=== PATIENT | female | born 1965 | race Caucasian/White ===

== ENCOUNTER 2019-07-15 18:02 | Emergency (ER) | payer OTHER ==
[~2019-07-15] VITALS: Ht 172.7 cm; Wt 90.9 kg
--- OUTSIDE RECORDS SUMMARY | 2019-07-15 18:07 | XMS REPORT | Continuity of Care Document ---
Author Organization Unknown Address Unknown Phone Unavailable Allergies Active Description Code Type Severity Reaction Onset Reported/Identified Relationship to Patient Clinical Status Yes PENICILLINS MODERATE MODERATE Yes PENICILLINS MODERATE OTHER Medications There is no data. Problems Date Dx Coded Attending Type Code Diagnosis Diagnosed By 05/02/2018 W 461.9 ACUT E SINUSITIS, UNSPECIFIED 05/02/2018 W 477.8 ATILIO RGIC RHINITIS DUE TO OTHER ALLERGEN 05/02/2018 W J01.90 ACU TE SINUSITIS, UNSPECIFIED 05/02/2018 W J30.2 OTHE R SEASONAL ALLERGIC RHINITIS 08/29/2018 Nataliya Morel W 599.70 HEMATURIA, UNSPECIFIED 08/29/2018 Nataliya Morel W 788.1 DYSURIA 08/29/2018 Nataliya Morel W 791.0 PROTEINURIA 08/29/2018 Nataliya Morel R30.0 DYSURIA 08/29/2018 Nataliya Morel W R31.9 HEMATURIA, UNSPECIFIED 08/29/2018 Nataliya Morel W R80.8 OTHER PROTEINURIA 08/29/2018 W 599.70 HEM ATURIA, UNSPECIFIED 08/29/2018 W 788.1 DYSURIA 08/29/2018 W 791.0 PROT EINURIA 08/29/2018 W R30.0 DYSURIA 08/29/2018 W R31.9 HIPOLITO TURIA, UNSPECIFIED 08/29/2018 W R80.8 OTHE R PROTEINURIA 08/29/2018 Nataliya Morel W 599.70 HEMATURIA, UNSPECIFIED 08/29/2018 Nataliya Morel W 788.1 DYSURIA 08/29/2018 Nataliya Morel 791.0 PROTEINURIA 08/29/2018 Nataliya Morel R30.0 DYSURIA 08/29/2018 Nataliya Morel R31.9 HEMATURIA, UNSPECIFIED 08/29/2018 Nataliya Morel R80.8 OTHER PROTEINURIA 11/10/2018 CAROL ANN GIBSON W V01.84 CONTACT WITH OR EXPOSURE TO COMMUNICABLE DISEASES, MENINGOCOCCUS 11/10/2018 CAROL ANN GIBSON W V01.84 CONTACT WITH OR EXPOSURE TO COMMUNICABLE DISEASES, MENINGOCOCCUS 11/10/2018 MEETA GIBSONHEL W V01.84 CONTACT WITH OR EXPOSURE TO COMMUNICABLE DISEASES, MENINGOCOCCUS 11/10/2018 MEETA GIBSONHEL W V01.84 CONTACT WITH OR EXPOSURE TO COMMUNICABLE DISEASES, MENINGOCOCCUS 11/11/2018 Nataliya Morel W 780.79 OTHER MALAISE AND FATIGUE 11/11/2018 Adriel Nataliya W R53.83 OTHER FATIGUE 11/11/2018 Adriel Nataliya W 780.79 OTHER MALAISE AND FATIGUE 11/11/2018 Adriel Nataliya W 780.8 GENERALIZED HYPERHIDROSIS 11/11/2018 Nataliya Morel W R53.83 OTHER FATIGUE 11/11/2018 Nataliya Morel W R61 GENERALIZED HYPERHIDROSIS 11/11/2018 Nataliya Morel W 780.79 OTHER MALAISE AND FATIGUE 11/11/2018 Nataliya Morel W 780.8 GENERALIZED HYPERHIDROSIS 11/11/2018 Isela Morelela W R53.83 OTHER FATIGUE 11/11/2018 Adriel Nataliya W R61 GENERALIZED HYPERHIDROSIS 11/14/2018 GIBSON, CAROL ANN W 780.79 OTHER MALAISE AND FATIGUE 11/14/2018 GIBSON, CAROL ANN W 780.8 GENERALIZED HYPERHIDROSIS 11/14/2018 GIBSON, CAROL ANN W R53.83 OTHER FATIGUE 11/14/2018 GIBSON, CAROL ANN W R61 GENERALIZED HYPERHIDROSIS 11/14/2018 GIBSON, CAROL ANN W 780.79 OTHER MALAISE AND FATIGUE 11/14/2018 GIBSON, CAROL ANN W 780.8 GENERALIZED HYPERHIDROSIS 11/14/2018 GIBSON, CAROL ANN W R53.83 OTHER FATIGUE 11/14/2018 GIBSON, CAROL ANN W R61 GENERALIZED HYPERHIDROSIS 11/14/2018 GIBSON, CAROL ANN W 780.79 OTHER MALAISE AND FATIGUE 11/14/2018 GIBSON, CAROL ANN W 780.8 GENERALIZED HYPERHIDROSIS 11/14/2018 GIBSON, CAROL ANN W R53.83 OTHER FATIGUE 11/14/2018 GIBSON, CAROL ANN W R61 GENERALIZED HYPERHIDROSIS 11/14/2018 GIBSON, CAROL ANN W 780.79 OTHER MALAISE AND FATIGUE 11/14/2018 CAROL ANN GIBSON 780.8 GENERALIZED HYPERHIDROSIS 11/14/2018 CAROL ANN GIBSON R53.83 OTHER FATIGUE 11/14/2018 CAROL ANN GIBSON R61 GENERALIZED HYPERHIDROSIS Procedures There is no data. Results Test Result Range Comprehensive Metabolic Panel - 04/04/18 10:30 Albumin 4.0 g/dL 3.6-5.1 ALP 128 U/L 35-130 ALT 22 U/L 6-45 Anion Gap 12 6-14 AST 27 U/L 2-40 BUN 15 mg/dL 5-25 Calcium 9.1 mg/dL 8.3-10.4 Chloride 104 mmol/L 95-114 CO2 25 mEq/L 22-33 Creat 0.82 mg/dL 0.50-1.50 eGFR 73 mL/min/1.73m2 >59 Globulin 2.6 g/dL 2.3-3.5 Glucose 88 mg/dL 70-110 Osmo 283 280-295 Potassium 4.2 mmol/L 3.5-5.3 Sodium 137 mmol/L 134-148 TBil 0.3 mg/dL 0.2-1.2 TP 6.6 g/dL 6.0-8.3 Urine Culture - 08/29/18 10:38 PRELIM CULTURE RESULTS 50,000-100,000 Gram N egative Lactose Youth Support Worker KATELYN / ID to Follow MEDIA PLATED Setup at 14:43 on 08/29/2018 CULTURE SOURCE urine Sensi - 08/29/18 10:38 FINAL CULTURE RESULTS Escherichia coli (Isolate 1) Ampicillin/Sulbactam 16/8 Ampicillin >16 Amoxicillin/K Clavulanate <=8/4 Ceftriaxone <=8 Ciprofloxacin <=1 Nitrofurantoin <=32 Gentamicin <=4 Levofloxacin <=2 Trimethoprim/ Sulfamethoxazole <=2/38 Tetracycline <=4 Amikacin <=16 Aztreonam <=8 Ceftazidime <=1 Ceftazidime/K Clavulanate <=0.25 Cephalothin <=8 Cefotaxime <=2 Cefotaxime/K Clavulanate <=0.5 Cefoxitin <=8 Cefazolin <=8 Cefepime <=8 Cefuroxime <=4 Ertapenem <=1 Imipenem <=4 Meropenem <=4 Piperacillin/Tazobactam <=16 Piperacillin >64 Tigecycline <=2 Tobramycin <=4 Thyroid Stimulating Hormone - 11/14/18 0 8:10 TSH 1.22 mIU/mL 0.32-5.00 CBC with Auto Diff - 01/05/19 09:05 Baso% 0.70 % 0.00-2.50 Eos 0.2 K/uL 0.0-0.7 Eos% 2.0 % 0.0-7.0 Hct 39.6 % 36.0-46.0 Hgb 12.9 g/dL 13.0-15.0 Lym 3.34 K/uL 0.60-3.40 Lym% 39.0 % 10.0-50.0 MCH 30.8 pg 27.0-31.0 MCHC 32.6 g/dL 32.0-36.0 MCV 94.5 fL 80.0-97.0 Stewart% 9.1 % 0.0-12.0 MPV 10.2 fL 7.4-10.0 [place]% 49.2 % 37.0-80.0 Plt 455 K/uL 150-400 RBC 4.19 M/uL 3.60-5.00 RDW 13.3 % 11.6-14.8 WBC 8.56 K/uL 5.00-10.00 [place] 4.21 K/uL 2.00-6.90 Stewart 0.8 K/uL 0.0-0.9 Baso 0.1 K/uL 0.0-0.2 Encounters ACCT No. Visit Date/Time Discharge Status Pt. Type Provider Facility Loc./Unit Complaint [id number] 05/10/2019 00:00:00 05/10/2019 23:59 :00 DIS Outpatient CAROL ANN GIBSON [id number] 01/05/2019 09:19:00 01/05/2019 23:59: 00 DIS Outpatient CAROL ANN GIBSON [id number] 11/14/2018 09:25:00 11/14/2018 23:59: 00 DIS Outpatient CAROL ANN GIBSON [id number] 11/14/2018 08:03:00 11/14/2018 23:59: 00 DIS Outpatient CAROL ANN GIBSON [id number] 11/11/2018 14:30:00 11/11/2018 23:59: 00 DIS Outpatient Nataliya Morel [id number] 11/10/2018 15:30:00 11/10/2018 23:59: 00 DIS Outpatient GIBSONCAROL ANN [id number] 08/29/2018 11:13:00 08/29/2018 23:59: 00 DIS Outpatient Nataliya Morel [id number] 04/04/2018 14:32:00 04/04/2018 23:59: 00 DIS Outpatient Nataliya Morel [id number] 01/05/2019 09:57:43 Document Registration [id number] 08/29/2018 10:30:00 Document Registration [id number] 05/02/2018 08:01:00 Document Registration
[2019-07-15] MEDS ORDERED: IBUPROFEN 800 MG (MOTRIN) TAB PO ONE (18:15)
[2019-07-15] MEDS ORDERED: HYDROcodone/APAP 5 MG/325 MG (LORTAB) TAB PO ONE (18:15)
--- NOTE | 2019-07-15 18:16 | ED Upper Extremity ---
General Chief Complaint: Trauma-Non Activation Stated Complaint: FALL - L ARM PAIN Source: patient Exam Limitations: no limitations History of Present Illness Date Seen by Provider: July 15, 2019 Time Seen by Provider: 18:14 Initial Comments Was cooking chicken, slipped in oil, landed on left elbow. No other injury. Onset: just prior to arrival Severity: moderate Pain/Injury Location: left shoulder, left elbow Method of Injury: fell Modifying Factors: Worse With Movement Allergies and Home Medications Allergies Coded Allergies: Penicillins (Verified Allergy, Unknown, 07/15/19) Home Medications Hydrocodone/Acetaminophen 1 Each Tablet, 1 EACH PO Q4-6HR PRN for PAIN-MODERATE Prescribed by: TRAM LAUGHLIN on 07/15/19 [id number] Patient Home Medication List Home Medication List Reviewed: Yes Review of Systems Constitutional: see HPI EENTM: see HPI Respiratory: no symptoms reported Cardiovascular: no symptoms reported Genitourinary: no symptoms reported Musculoskeletal: see HPI Skin: no symptoms reported Psychiatric/Neurological: No Symptoms Reported Past Neddsjs-Ehxtua-Jjlomh Hx Patient Social History Recent Foreign Travel: No Contact w/Someone Who Travel: No Physical Exam Vital Signs Vital Signs - First Documented 07/15/19 18:06 Temp 37.0 Pulse 102 Resp 18 B/P (MAP) 144/108 (120) Pulse Ox 99 Capillary Refill : Height, Weight, BMI Height: '" Weight: lbs. oz. kg; BMI Method: General Appearance: WD/WN, no apparent distress HEENT: PERRL/EOMI, normal ENT inspection Respiratory: no respiratory distress, no accessory muscle use Shoulder: normal inspection, non-tender Elbow/Forearm: Left, ecchymosis, limited ROM, pain, soft tissue tenderness (also reports some numbness to all of her fingertips except pointer finger), swelling Wrist: Yes normal inspection, Yes non-tender Hand: normal inspection, no evidence of injury, Left Neurologic/Tendon: normal motor functions, normal tendon functions Neurologic/Psychiatric: alert, normal mood/affect, oriented x 3 Skin: normal color, warm/dry Progress/Results/Core Measures Results/Orders My Orders Orders - TRAM LAUGHLIN APRN Hydrocodone/Apap 5/325 Tablet (Lortab 5 (07/15/19 18:15) Ibuprofen Tablet (Motrin Tablet) (07/15/19 18:15) Elbow, Left, 3 Views (07/15/19 18:13) Shoulder, Left, 3 Views (07/15/19 18:13) Medications Given in ED Current Medications Medications Dose Ordered Sig/Aggie Route Start Time Stop Time Status Last Admin Dose Admin Acetaminophen/ Hydrocodone Bitart 1 tab ONCE ONCE PO 07/15/19 18:15 07/15/19 18:16 DC 07/15/19 18:17 1 TAB Ibuprofen 800 mg ONCE ONCE PO 07/15/19 18:15 07/15/19 18:16 DC 07/15/19 18:17 800 MG Vital Signs/I&O 07/15/19 18:06 Temp 37.0 Pulse 102 Resp 18 B/P (MAP) 144/108 (120) Pulse Ox 99 Departure Communication (Admissions) placed in posterior long arm splint and sling. Impression Primary Impression: Left radial head fracture Qualified Codes: S52.125A - Nondisplaced fracture of head of left radius, initial encounter for closed fracture Disposition: HOME, SELF-CARE Condition: Stable Departure-Patient Inst. Decision time for Depature: 18:35 Referrals: PRECIOUS VILLAGOMEZ MD, RACHEL L MD (PCP/Family) Primary Care Physician CARMELITA AWAN MICHAEL P MD Add. Discharge Instructions: 1. Pain medication as directed 2. Follow up with one of the orthopedists next week 3. Keep splint and sling on until otherwise directed. All discharge instructions reviewed with patient and/or family. Voiced understanding. Scripts Hydrocodone/Acetaminophen (Lorcet 5-325 mg Tablet) 1 Each Tablet 1 EACH PO Q4-6HR PRN for PAIN-MODERATE MDD 10 for 7 Days, #14 TAB Prov: TRAM LAUGHLIN COMPUTER SERVICE TECHNICIAN 07/15/19 TRAM LAUGHLIN COMPUTER SERVICE TECHNICIAN July 15, 2019 18:16
[2019-07-15] MEDS ORDERED: HYDR-3870 PO ×2 (18:38→19:03)
--- NOTE | 2019-07-15 18:39 | Diagnostic Imaging Report ---
INDICATION: Fall, pain. EXAMINATION: Three views of the left elbow. FINDINGS: No pathologically displaced fat pad. No fracture or dislocation. The articular surfaces are smooth. The alignment is normal. IMPRESSION: Negative. Dictated by: Dictated on workstation # [id number]
--- NOTE | 2019-07-15 18:40 | Diagnostic Imaging Report ---
INDICATION: Slipped and fell with pain. EXAMINATION: Three views of the left shoulder. FINDINGS: The clavicle appears intact. The AC joint is unremarkable. No fracture could be identified. The glenohumeral joint is unremarkable. The visualized adjacent ribs and pleura are intact. IMPRESSION: No acute appearing abnormality. Dictated by: Dictated on workstation # [id number]
[2019-07-15 19:12] VITALS: BP 152/108
[2019-07-15] MEDS ORDERED: RX-HYDROCODONE/APAP 5/325 MG #4 TAB PK PO PRN (19:15)
== END 2019-07-15 19:11 | disposition home or self-care (01) ==
LOC: ER 18:04
DX: S52.125A Nondisplaced fracture of head of left radius, initial encounter for closed fracture (principal); Z88.0 Allergy status to penicillin; W01.0XXA Fall on same level from slipping, tripping and stumbling without subsequent striking against object, initial encounter
CPT/HCPCS: 29105; 73030; 73080

== ENCOUNTER 2019-12-26 13:02 | Observation (INO) | payer OTHER ==
[2019-12-26] VITALS (8 sets, daily range): BP systolic 103–133; BP diastolic 63–87
[~2019-12-26] VITALS: Ht 172.7 cm; Wt 93.3 kg
[~2019-12-26 13:02] MED LIST: HYDR-3870 PO
[2019-12-26] MEDS ORDERED: ASPIRIN 81 MG CHEW (CHILDREN'S ASA) PO ONE (13:30)
[2019-12-26] MEDS ORDERED: NITROGLYCERIN 0.4 MG SL TABS BTL 25'S SL PRN ×2 (13:30→17:15)
[2019-12-26 13:33] LABS: BASOPHILS % (AUTO) 0 % (0-10); EOSINOPHILS # (AUTO) 0.2 10^3/uL (0.0-0.3); EOSINOPHILS % (AUTO) 2 % (0-10); HEMATOCRIT 40 % (35-52); HEMOGLOBIN 13.1 g/dL (11.5-16.0); LYMPHOCYTES # (AUTO) 3.8 10^3/uL (1.0-4.0); LYMPHOCYTES % (AUTO) 38 % (12-44); MEAN CORPUSCULAR HEMOGLOBIN 30 pg (25-34); MEAN CORPUSCULAR HGB CONC 33 g/dL (32-36); MEAN CORPUSCULAR VOLUME 92 fL (80-99); MEAN PLATELET VOLUME 9.8 fL (9.0-12.2); MONOCYTES # (AUTO) 0.8 10^3/uL (0.0-1.0); MONOCYTES % (AUTO) 8 % (0-12); NEUTROPHILS # (AUTO) 5.1 10^3/uL (1.8-7.8); NEUTROPHILS % (AUTO) 51 % (42-75); PLATELET COUNT 407 10^3/uL (130-400)
--- NOTE | 2019-12-26 13:40 | Diagnostic Imaging Report ---
INDICATION: Chest pain. Time of exam 1:35 p.m. No prior studies are available for comparison. FINDINGS: The heart size is normal. The pulmonary vascularity is unremarkable. The lungs are clear. No infiltrate, effusion or pneumothorax is detected. IMPRESSION: No acute cardiopulmonary process is detected. Dictated by: Dictated on workstation # [id number]
[2019-12-26 13:47] LABS: ALBUMIN 4.2 GM/DL (3.2-4.5); CHLORIDE 104 MMOL/L (98-107); POTASSIUM 4.5 MMOL/L (3.6-5.0); PROTHROMBIN TIME PATIENT 13.1 SEC (12.2-14.7); SODIUM 140 MMOL/L (135-145)
[2019-12-26 13:48] LABS: CALCIUM 9.2 MG/DL (8.5-10.1)
[2019-12-26 13:49] LABS: GLUCOSE 100 MG/DL (70-105)
[2019-12-26 13:50] LABS: TOTAL PROTEIN 7.4 GM/DL (6.4-8.2)
[2019-12-26 13:51] LABS: BILIRUBIN,TOTAL 0.3 MG/DL (0.1-1.0); CARBON DIOXIDE 24 MMOL/L (21-32)
[2019-12-26 13:53] LABS: ALKALINE PHOSPHATASE 117 U/L (40-136); CREATININE SERUM 0.95 MG/DL (0.60-1.30); GFR ESTIMATED > 60
[2019-12-26 13:54] LABS: BUN/CREATININE RATIO 23
[2019-12-26 13:56] LABS: ALANINE AMINOTRANSFERASE 36 U/L (0-55)
--- NOTE | 2019-12-26 15:36 | ED Chest Pain ---
General Chief Complaint: Chest Pain Stated Complaint: CP,SOB Nursing Triage Note: PT STATES CHEST PAIN IN THE UPPER CHEST THAT STARTED WHILE AT WORK, SITTING AT A DESK, LIGHTHEADED AND HOT FLASHES. Nursing Sepsis Screen: No Definite Risk Source: patient Exam Limitations: no limitations History of Present Illness Date Seen by Provider: Dec 26, 2019 Time Seen by Provider: 13:10 Initial Comments This 54-year-old woman presents to the emergency room with lower chest mathis that wraps around the lateral edges. Pain started abruptly at work at 12:21 and was characterized as sharp. She rated the pain as 10 out of 10. Pain is now 6/10. She felt very hot and lightheaded at the time. She reports taking deep breaths and resting improved the pain. She denies any personal history of cardiopulmonary problems. She has never been a smoker. Her family history includes bicuspid valve, hypertension, hyperlipidemia, and colon cancer in her father. Her personal history includes breast cancer treated with lumpectomy. She denies any cough, shortness of breath, fever, or COVID-19 exposures. Allergies and Home Medications Allergies Coded Allergies: hydrocodone (Verified Allergy, Mild, Nausea, 12/26/19) Penicillins (Verified Allergy, Unknown, 07/15/19) Home Medications Hydrocodone/Acetaminophen 1 Each Tablet, 1 EACH PO Q4-6HR PRN for PAIN-MODERATE Prescribed by: TRAM LAUGHLIN on 07/15/19 1838 Hydrocodone/Acetaminophen 1 Each Tablet, 1 EACH PO Q4-6HR PRN for PAIN-MODERATE Prescribed by: TRAM LAUGHLIN on 07/15/19 1903 Patient Home Medication List Home Medication List Reviewed: Yes Review of Systems Review of Systems Constitutional: see HPI EENTM: No Symptoms Reported Respiratory: No Symptoms Reported Cardiovascular: See HPI Gastrointestinal: No Symptoms Reported Genitourinary: No Symptoms Reported Musculoskeletal: no symptoms reported Skin: no symptoms reported Psychiatric/Neurological: No Symptoms Reported Endocrine: No Symptoms Reported Hematologic/Lymphatic: No Symptoms Reported Past Ypngvze-Xxpgxc-Vvriid Hx Past Med/Social Hx: Reviewed Nursing Past Med/Soc Hx Patient Social History Alcohol Use: Occasionally Uses Number of Drinks Today: GG Alcohol Beverage of Choice: Beer, Whiskey Recreational Drug Use: No Smoking Status: Never a Smoker Recent Foreign Travel: No Contact w/Someone Who Travel: No Recent Infectious Disease Expo: No Recent Hopitalizations: No Physical Abuse: No Sexual Abuse: No Mistreated: No Fear: No Seasonal Allergies Seasonal Allergies: Yes Past Medical History Surgeries: Yes (BI LAT KNEES, skin cancer excision) Lumpectomy, Orthopedic Respiratory: No Cardiac: No Neurological: No : No Genitourinary: No Gastrointestinal: No Musculoskeletal: No Endocrine: No HEENT: No Cancer: Yes Skin, Breast Did You Recieve Any Treatments: Yes What Type of Treatment Did You: Surgical Intervention Psychosocial: No Integumentary: No Physical Exam Vital Signs Vital Signs - First Documented Capillary Refill : Less Than 3 Seconds Height, Weight, BMI Height: '" Weight: lbs. oz. kg; 30.00 BMI Method: General Appearance: No Apparent Distress, WD/WN HEENT: PERRL/EOMI, Normal ENT Inspection Neck: Normal Inspection; No JVD Respiratory: Chest Non Tender, Lungs Clear, Normal Breath Sounds, No Accessory Muscle Use, No Respiratory Distress Cardiovascular: Regular Rate, Rhythm, No Edema, No Murmur Gastrointestinal: Normal Bowel Sounds, Non Tender, Soft Extremity: Normal Inspection, No Pedal Edema Neurologic/Psychiatric: Alert, Oriented x3, No Motor/Sensory Deficits, Normal Mood/Affect, medical staff coordinator II-XII Norm as Tested Skin: Normal Color, Warm/Dry Progress/Results/Core Measures Results/Orders Lab Results Laboratory Tests Test 12/26/19 13:25 12/26/19 15:28 Range/Units White Blood Count 10.0 4.3-11.0 10^3/uL Red Blood Count 4.31 3.80-5.11 10^6/uL Hemoglobin 13.1 11.5-16.0 g/dL Hematocrit 40 35-52 % Mean Corpuscular Volume 92 80-99 fL Mean Corpuscular Hemoglobin 30 25-34 pg Mean Corpuscular Hemoglobin Concent 33 32-36 g/dL Red Cell Distribution Width 12.8 10.0-14.5 % Platelet Count 407 H 130-400 10^3/uL Mean Platelet Volume 9.8 9.0-12.2 fL Immature Granulocyte % (Auto) 0 % Neutrophils (%) (Auto) 51 42-75 % Lymphocytes (%) (Auto) 38 12-44 % Monocytes (%) (Auto) 8 0-12 % Eosinophils (%) (Auto) 2 0-10 % Basophils (%) (Auto) 0 0-10 % Neutrophils # (Auto) 5.1 1.8-7.8 10^3/uL Lymphocytes # (Auto) 3.8 1.0-4.0 10^3/uL Monocytes # (Auto) 0.8 0.0-1.0 10^3/uL Eosinophils # (Auto) 0.2 0.0-0.3 10^3/uL Basophils # (Auto) 0.0 0.0-0.1 10^3/uL Immature Granulocyte # (Auto) 0.0 0.0-0.1 10^3/uL Prothrombin Time 13.1 12.2-14.7 SEC INR Comment 1.0 0.8-1.4 Activated Partial Thromboplast Time 27 24-35 SEC Sodium Level 140 135-145 MMOL/L Potassium Level 4.5 3.6-5.0 MMOL/L Chloride Level 104 98-107 MMOL/L Carbon Dioxide Level 24 21-32 MMOL/L Anion Gap 12 5-14 MMOL/L Blood Urea Nitrogen 22 H 7-18 MG/DL Creatinine 0.95 0.60-1.30 MG/DL Estimat Glomerular Filtration Rate > 60 BUN/Creatinine Ratio 23 Glucose Level 100 70-105 MG/DL Calcium Level 9.2 8.5-10.1 MG/DL Corrected Calcium 9.0 8.5-10.1 MG/DL Magnesium Level 2.0 1.6-2.4 MG/DL Total Bilirubin 0.3 0.1-1.0 MG/DL Aspartate Amino Transf (AST/SGOT) 30 5-34 U/L Alanine Aminotransferase (ALT/SGPT) 36 0-55 U/L Alkaline Phosphatase 117 40-136 U/L Myoglobin 24.1 10.0-92.0 NG/ML Troponin I < 0.028 <0.028 NG/ML Total Protein 7.4 6.4-8.2 GM/DL Albumin 4.2 3.2-4.5 GM/DL D-Dimer <= 0.27 0.00-0.49 UG/ML My Orders Orders - SETH BAJWA MD Cbc With Automated Diff (12/26/19 13:14) Magnesium (12/26/19 13:14) Chest 1 View, Ap/Pa Only (12/26/19 13:14) Ekg Tracing (12/26/19 13:14) Comprehensive Metabolic Panel (12/26/19 13:14) Myoglobin Serum (12/26/19 13:14) Protime With Inr (12/26/19 13:14) Partial Thromboplastin Time (12/26/19 13:14) O2 (12/26/19 13:14) Monitor-Rhythm Ecg Trace Only (12/26/19 13:14) Lipid Panel (12/27/19 06:00) Ed Iv/Invasive Line Start (12/26/19 13:14) Troponin I (12/26/19 13:14) Nitroglycerin 0.4 Mg Btl 25's (Nitrostat (12/26/19 13:30) Aspirin Chewable Tablet (Baby Aspirin Ch (12/26/19 13:30) Fibrin Degradation Products (12/26/19 15:28) Medications Given in ED Current Medications Medications Dose Ordered Sig/Aggie Route Start Time Stop Time Status Last Admin Dose Admin Aspirin 324 mg ONCE ONCE PO 12/26/19 13:30 12/26/19 13:31 DC 12/26/19 13:29 324 MG Nitroglycerin 0.4 mg UD PRN SL 12/26/19 13:30 12/26/19 17:13 DC 12/26/19 13:29 0.4 MG Vital Signs/I&O 12/26/19 12/26/19 13:20 13:20 Temp 36.6 Pulse 87 Resp 20 B/P (MAP) 129/86 (100) Pulse Ox 99 O2 Delivery Room Air Room Air Blood Pressure Mean: 100 Progress Progress Note #1: Time: 15:29 Progress Note Initial cardiopulmonary work-up was unremarkable. Patient had reduction in pain from 6/10 down to 4/10 after administration of 2 nitroglycerin. Aspirin was also given. PERC criteria did not exclude her from evaluation for pulmonary embolism due to her age. Therefore a D-dimer has been added. Case was discussed with Dr. Taylor who is agreeable to admission for her persistent chest pain. Progress Note #2: Progress Note D-dimer was negative. Patient still had some residual chest discomfort. She was ultimately admitted for further monitoring and cardiac consultation Initial ECG Impression Date: Dec 26, 2019 Initial ECG Impression Time: 13:06 Initial ECG Rate: 82 Initial ECG Rhythm: Normal Sinus Comment Sinus rhythm with no ST elevation or depression. Inverted T waves noted. No abnormal intervals or axis deviation. Diagnostic Imaging Diagonstic Imaging: Xray Plain Films/CT/US/NM/MRI: chest Comments NAME: AAKASH SANDOVAL [facility] REC#: [id number] PT STATUS: REG ER : 1965 PHYSICIAN: SETH BAJWA MD ADMIT DATE: 12/26/19/ER Draft Date of Exam:12/26/19 CHEST 1 VIEW, AP/PA ONLY INDICATION: Chest pain. Time of exam 1:35 p.m. No prior studies are available for comparison. FINDINGS: The heart size is normal. The pulmonary vascularity is unremarkable. The lungs are clear. No infiltrate, effusion or pneumothorax is detected. IMPRESSION: No acute cardiopulmonary process is detected. Dictated on workstation # [id number] Dict: 12/26/19 1335 Trans: 12/26/19 1340 [facility] [id number] Interpreted by: ANNALISA SKY MD Reviewed: Reviewed by Me Departure Communication (Admissions) Time/Spoke to Admitting Phy: 15:55 Dr. Pruett Time/Spoke to Consulting Phy: 15:07 Dr. Taylor Impression Primary Impression: Chest pain Qualified Codes: R07.9 - Chest pain, unspecified Disposition: ADMITTED INPATIENT Condition: Improved Admissions Decision to Admit Reason: Admit from ER (General) Decision to Admit/Date: Dec 26, 2019 Time/Decision to Admit Time: 15:07 Departure-Patient Inst. Referrals: CAROL ANN GIBSON MD (PCP/Family) Primary Care Physician SETH BAJWA MD Dec 26, 2019 15:36
--- NOTE | 2019-12-26 16:50 | NUR ---
REPORT TAKEN FROM CLARISSA MARTE IN ED AT THIS TIME.
--- NOTE | 2019-12-26 17:08 | NUR ---
PATIENT TO FLOOR AT THIS TIME VIA W/C.
[2019-12-26] MEDS ORDERED: CATHETER FLUSH 10 ML SYR IV PRN (17:15)
[2019-12-26] MEDS ORDERED: morphine INJ 4 MG/ML 1 ML (VIAL/SYRINGE) IV PRN (17:15)
[2019-12-26] MEDS ORDERED: ONDANSETRON 4 MG/2 ML (SDV) Z0FRAN IV PRN (17:15)
[2019-12-26] MEDS ORDERED: ONDANSETRON 4 MG/2 ML (SDV) Z0FRAN IVP PRN (17:15)
[2019-12-26] MEDS ORDERED: FLU QUADRIvalent (3YOA+) 60 mcg/0.5 ml 2020-21 (AFLURIA) IM ONE (17:45)
[2019-12-26] MEDS: CATHETER FLUSH 10 ML SYR IV SCH (22:48)
[2019-12-27] VITALS (7 sets, daily range): BP systolic 110–130; BP diastolic 62–86
[2019-12-27] MEDS: CATHETER FLUSH 10 ML SYR IV SCH ×3 (05:07→22:00)
[2019-12-27 06:08] LABS: TRIGLYCERIDES 106 MG/DL (<150); VLDL CHOLESTEROL 21 MG/DL (5-40)
[2019-12-27 06:13] LABS: CHOLESTEROL 209 MG/DL (< 200)
[2019-12-27 06:14] LABS: HDL CHOLESTEROL 100 MG/DL (40-60)
[2019-12-27] MEDS: ASPIRIN E.C. 81 MG (ECOTRIN) TAB PO SCH (08:34)
[2019-12-27] MEDS ORDERED: IBUP200C11 PO (10:40)
[2019-12-27] MEDS ORDERED: FEXO180T84 PO (10:40)
[2019-12-27] MEDS ORDERED: ST.300TA3 PO (10:40)
[2019-12-27] MEDS ORDERED: ACET-2267 PO (10:40)
[2019-12-27] MEDS ORDERED: CALC500T7 PO (10:40)
--- NOTE | 2019-12-27 10:49 | NUR ---
I SPOKE WITH THE PATIENT AND WENT THROUGH THE EXTERNAL MED HISTORY TO COMPLETE THIS MED REC. PATIENT STATES THAT SHE'S ONLY TAKING OTC MEDS AT THIS TIME. OTC: [facility] EDIE JUAREZ TYLENOL ADVIL
--- NOTE | 2019-12-27 11:43 | History & Physical-Hospitalist ---
History of Present Illness HPI/Chief Complaint Pt is a 54yoCF who presented to the ER due to chest pain. she states she was sitting at her desk at work and developed 10 on 10 chest pain across her chest. She describes it as tight. She was short of breath, lightheaded, diaphoretic with this. She denies nausea or vomiting. She developed tingling down her left hand with this. this started abruptly at 1221 yesterday. She attempted to get up and walk around but was too dyspneic for this. It improved at 1250. She decided to seek evaluation in the emergency room. She was given nitroglycerin which improved her pain. She is now chest pain free but she does have some left calf soreness Source: patient Date Seen 12/27/19 Time Seen by a Provider: 11:33 Attending Physician Jo Pruett MD PCP Sandrita Cantu MD Referring Physician Date of Admission Dec 26, 2019 at 16:39 Home Medications & Allergies Home Medications Reviewed patient Home Medication Reconciliation performed by pharmacy medication reconciliations wheel alignment technician and/or nursing. Patients Allergies have been reviewed. Allergies Allergies Coded Allergies hydrocodone (Verified Allergy, Mild, Nausea, 12/26/19) Penicillins (Verified Allergy, Unknown, 07/15/19) Past Wzbpwei-Wmzxsu-Qrtsns Hx Past Med/Social Hx: Reviewed Nursing Past Med/Soc Hx Patient Social History Alcohol Use: Occasionally Uses Alcohol Beverage of Choice: Beer, Whiskey Recreational Drug Use: No Smoking Status: Never a Smoker Recent Foreign Travel: No Contact w/other who traveled: No Recent Hopitalizations: No Recent Infectious Disease Expo: No Seasonal Allergies Seasonal Allergies: Yes Past Medical History Surgeries: Lumpectomy, Orthopedic : No Cancer: Skin, Breast Did You Recieve Any Treatments: Yes What Type of Treatment Did You: Surgical Intervention Family History Alzheimer's disease 19 MOTHER Bicuspid heart valve 19 FATHER Colon cancer 19 FATHER Dementia 19 MOTHER Diabetes mellitus 19 FATHER Hypercholesterolemia 19 FATHER 19 MOTHER Hypertension 19 FATHER 19 MOTHER Review of Systems Constitutional: No chills, No fever EENTM: no symptoms reported Respiratory: see HPI Cardiovascular: see HPI, chest pain Gastrointestinal: no symptoms reported Genitourinary: no symptoms reported Musculoskeletal: muscle cramps Skin: no symptoms reported Psychiatric/Neurological: Tingling (in hand) Physical Exam Physical Exam Vital Signs Vital Signs - First Documented Capillary Refill : Less Than 3 Seconds Height, Weight, BMI Height: '" Weight: lbs. oz. kg; 31.28 BMI Method: General Appearance: No Apparent Distress, WD/WN HEENT: PERRL/EOMI, Moist Mucous Membranes Neck: Normal Inspection, Supple; No Thyromegaly Respiratory: Lungs Clear, No Accessory Muscle Use, No Respiratory Distress Cardiovascular: Regular Rate, Rhythm, No Murmur Gastrointestinal: Normal Bowel Sounds, Non Tender, Soft Extremity: Normal Capillary Refill, No Calf Tenderness, No Pedal Edema Neurologic/Psychiatric: Alert, Oriented x3 Skin: Normal Color, Warm/Dry Results Results/Procedures Labs Patient resulted labs reviewed. Imaging: Reviewed Imaging Report Imaging [facility], [place] NAME: AAKASH SANDOVAL [facility] REC#: [id number] PT STATUS: ADM Shira : 1965 PHYSICIAN: SETH BAJWA MD ADMIT DATE: 12/26/19 Signed Date of Exam:12/26/19 CHEST 1 VIEW, AP/PA ONLY INDICATION: Chest pain. Time of exam 1:35 p.m. No prior studies are available for comparison. FINDINGS: The heart size is normal. The pulmonary vascularity is unremarkable. The lungs are clear. No infiltrate, effusion or pneumothorax is detected. IMPRESSION: No acute cardiopulmonary process is detected. Dictated by: Dictated on workstation # [id number] Dict: 12/26/19 1335 Trans: 12/26/19 1659 [facility] [id number] Interpreted by: ANNALISA SKY MD Electronically signed by: ANNALISA SKY MD 12/26/19 1659 Assessment/Plan Admission Diagnosis Chest Pain Admission Status: Observation Assessment and Plan Chest Pain troponin negative x2 d-dimer negative EKG shows NSR with inverted T waves Cardiology consulted, appreciate recs ASA Nitro prn Hypercholesterolemia Total choleterol 209 LDL 90, HDL 100 Consider statin Dvt ppx: Lovenox Diagnosis/Problems Diagnosis/Problems (1) Chest pain Status: Acute Qualifiers: Chest pain type: unspecified Qualified Codes: R07.9 - Chest pain, unspecified Clinical Quality Measures AMI/AHF: ASA po Prior to arrival: No DVT/VTE Risk/Contraindication: Risk Factor Score Per Nursin RFS Level Per Nursing on Admit: 4+=Very High JO PRUETT MD Dec 27, 2019 11:43
[2019-12-27] MEDS: ENOXAPARIN 40 MG/0.4 ML (LOVENOX) SYR SQ SCH (12:46)
--- NOTE | 2019-12-27 16:31 | Consultation-Cardiology ---
HPI-Cardiology Cardiology Consultation: Date of Consultation 12/27/19 Date of Admission Attending Physician Justina Pruett MD Admitting Physician Sandrita Cantu MD Consulting Physician Keysha ROBERTO MD HPI: Time Seen by a Provider: 12:30 PWK-Daaxly-Disyuy Hx Patient Social History Alcohol Use: Occasionally Uses Recreational Drug Use: No Smoking Status: Never a Smoker Recent Foreign Travel: No Recent Infectious Disease Expo: No Past Medical History PMH As described under Assessment. Family Medical History Family History: Alzheimer's disease 19 MOTHER Bicuspid heart valve 19 FATHER Colon cancer 19 FATHER Dementia 19 MOTHER Diabetes mellitus 19 FATHER Hypercholesterolemia 19 FATHER 19 MOTHER Hypertension 19 FATHER 19 MOTHER Allergies and Home Medications Allergies Coded Allergies: hydrocodone (Verified Allergy, Mild, Nausea, 12/26/19) Penicillins (Verified Allergy, Unknown, 07/15/19) Home Medications Acetaminophen 500 Mg Tablet, 500 MG PO Q6H PRN for PAIN-MILD (1-4), (Reported) Calcium Carbonate 200 Mg Tab.chew, 400 MG PO PRN PRN for HEARTBURN, (Reported) TAKES 2 (200MG) TABLETS Fexofenadine HCl 180 Mg Tablet, 180 MG PO DAILY, (Reported) Ibuprofen 200 Mg Capsule, 400 MG PO Q6H PRN for PAIN-MILD (1-4), (Reported) TAKES 2 (200MG) CAPSULES Meg's Wort 300 Mg Tablet, 300 MG PO DAILY, (Reported) Physical Exam-Cardiology Physical Exam Vital Signs/I&O 12/27/19 12/27/19 12/27/19 12/27/19 06:42 08:00 08:20 11:08 Temp 36.1 36.6 Pulse 80 81 70 Resp 18 20 B/P (MAP) 122/86 (98) 130/84 (99) Pulse Ox 97 97 96 O2 Delivery Room Air Room Air Room Air 12/27/19 12/27/19 12:37 15:34 Temp 36.4 Pulse 77 88 Resp 18 B/P (MAP) 129/81 (97) Pulse Ox 98 O2 Delivery Room Air 12/27/19 00:00 Intake Total 540 ml Balance 540 ml Capillary Refill : Less Than 3 Seconds Data Review Labs Laboratory Tests 12/26/19 19:50: Troponin I < 0.028 12/27/19 05:40: Triglycerides Level 106, Cholesterol Level 209H, LDL Cholesterol Direct 90, VLDL Cholesterol 21, HDL Cholesterol 100H A/P-Cardiology Plan Thank you for your consultation. Please call me if you have any questions. Elin Roberto MD, FACP, FACC, FSCAI, FHRS, CCDS Interventional Cardiology Cardiac Electrophysiology Vascular Medicine and Endovascular Interventions Clinical Quality Measures AMI/AHF: ASA po Prior to arrival: No DVT/VTE Risk/Contraindication: Risk Factor Score Per Nursin RFS Level Per Nursing on Admit: 4+=Very High Keysha ROBERTO MD Dec 27, 2019 16:31
[2019-12-27] MEDS ORDERED: REGADENOSON 0.4 MG/5 ML SYR (LEXISCAN) IV ONE (16:45)
[2019-12-27] MEDS ORDERED: IBUPROFEN 600 MG (MOTRIN) TAB PO ONE (23:51)
[2019-12-27] MEDS: IBUPROFEN 600 MG (MOTRIN) TAB PO PRN (23:54)
--- NOTE | 2019-12-27 23:56 | NUR ---
PT REPORTS HAVING A HEADACHE, REPORTS TAKING TYLENOL AND IBUPROFEN AT HOME FOR IT. DR MA CALLED, GAVE ORDER FOR IBUPROFEN 600MG PO Q6 PRN
[2019-12-28 04:03] VITALS: BP 111/67
[2019-12-28] MEDS: CATHETER FLUSH 10 ML SYR IV SCH ×2 (06:11→15:18)
--- NOTE | 2019-12-28 07:20 | NUR ---
TO SCAN PER W/C
[2019-12-28] MEDS ORDERED: REGADENOSON 0.4 MG/5 ML SYR (LEXISCAN) IV ONE (08:10)
[2019-12-28 08:26] VITALS: BP 118/78
[2019-12-28 09:30] VITALS: BP 117/82
[2019-12-28] MEDS: ASPIRIN E.C. 81 MG (ECOTRIN) TAB PO SCH (10:12)
--- NOTE | 2019-12-28 10:55 | NUR ---
IV LEAKING AND REMOVED, DOES NOT WANT IT RESTARTED, PATIENT THINKS SHE IS GOING HOME LATER TODAY. DR MASON NOTIFIED
--- NOTE | 2019-12-28 11:00 | NUR ---
DR MASON INSTRUCTED NURSE TO HOLD LOVENOX AND IV FOR NOW, PATIENT DOES NOT WANT LOVENOX
[2019-12-28 11:35] VITALS: BP 105/70
[2019-12-28] MEDS: ENOXAPARIN 40 MG/0.4 ML (LOVENOX) SYR SQ SCH (11:45)
[2019-12-28 12:00] VITALS: BP 111/62
[2019-12-28] MEDS: IBUPROFEN 600 MG (MOTRIN) TAB PO PRN (13:16)
--- NOTE | 2019-12-28 14:06 | Progress Note - Hospitalist ---
Subjective HPI/CC On Admission Date Seen by Provider: Dec 28, 2019 Time Seen by Provider: 14:02 Pt is a 54yoCF who presented to the ER due to chest pain. she states she was sitting at her desk at work and developed 10 on 10 chest pain across her chest. She describes it as tight. She was short of breath, lightheaded, diaphoretic with this. She denies nausea or vomiting. She developed tingling down her left hand with this. this started abruptly at 1221 yesterday. She attempted to get up and walk around but was too dyspneic for this. It improved at 1250. She decided to seek evaluation in the emergency room. She was given nitroglycerin which improved her pain. She is now chest pain free but she does have some left calf soreness Subjective/Events-last exam pt reports doing ok. Has a headache and feels tired following her stress test. No chest related complaints though. Objective Exam Vital Signs Vital Signs Date Time Temp Pulse Resp B/P (MAP) Pulse Ox O2 Delivery O2 Flow Rate FiO2 12/28/19 12:32 70 12/28/19 11:35 36.3 18 105/70 (82) 100 Room Air Capillary Refill : Less Than 3 Seconds General Appearance: No Apparent Distress, WD/WN Respiratory: Lungs Clear, No Respiratory Distress Cardiovascular: Regular Rate, Rhythm, No Murmur Gastrointestinal: Normal Bowel Sounds, Soft Neurologic/Psychiatric: Alert, Oriented x3, Normal Mood/Affect Results/Procedures Lab Patient resulted labs reviewed. Assessment/Plan Assessment and Plan Assess & Plan/Chief Complaint Chest Pain troponin negative x2 d-dimer negative EKG shows NSR with inverted T waves Cardiology consulted, appreciate recs ASA Nitro prn Stress test done today, results pending- if negative can DC home Hypercholesterolemia Total choleterol 209- advised lifestyle changes and following up with her PCP LDL 90, HDL 100 Dvt ppx: Lovenox Clinical Quality Measures AMI/AHF: ASA po Prior to arrival: No DVT/VTE Risk/Contraindication: Risk Factor Score Per Nursin RFS Level Per Nursing on Admit: 4+=Very High JO MASON MD Dec 28, 2019 14:05
--- NOTE | 2019-12-28 16:30 | NUR ---
DISCHARGE INSTRUCTIONS GIVEN, VERBALIZED UNDERSTANDING, INSTRUCTED ON FOLLOW UP APPOINTMENTS.
[2019-12-28 16:45] VITALS: BP 111/62
--- NOTE | 2019-12-28 18:34 | Cardiology Progress Note ---
Cardiology SOAP Progress Note Objective: I&O/Vital Signs 12/28/19 12/28/19 12/28/19 12/28/19 06:43 08:26 09:30 10:20 Temp 36.8 Pulse 64 74 85 Resp 18 18 B/P (MAP) 118/78 (91) 117/82 (94) Pulse Ox 96 96 96 O2 Delivery Room Air Room Air Room Air 12/28/19 12/28/19 12/28/19 12/28/19 11:35 12:00 12:32 16:45 Temp 36.3 36.8 36.8 Pulse 65 88 70 70 Resp 18 18 18 B/P (MAP) 105/70 (82) 111/62 (78) 111/62 Pulse Ox 100 98 98 O2 Delivery Room Air Room Air Room Air 12/28/19 00:00 Intake Total 2280 ml Balance 2280 ml A/P: Thank you for your consultation. Please call me if you have any questions. Elin Roberto MD, FACP, FACC, FSCAI, FHRS, CCDS Interventional Cardiology Cardiac Electrophysiology Vascular Medicine and Endovascular Interventions Clinical Quality Measures AMI/AHF: ASA po Prior to arrival: Keysha Remy MD Dec 28, 2019 18:34
== END 2019-12-28 16:45 | disposition home or self-care (01) ==
LOC: EDUNIT# 13:02 → ER 13:05 → 4TH 16:39
PROVIDERS: ADMIT Family Medicine; ATTEND Family Medicine
DX: R07.9 Chest pain, unspecified (principal); E78.00 Pure hypercholesterolemia, unspecified; Z88.5 Allergy status to narcotic agent; Z88.0 Allergy status to penicillin; Z85.3 Personal history of malignant neoplasm of breast; Z85.828 Personal history of other malignant neoplasm of skin; Z23 Encounter for immunization
CPT/HCPCS: 71045; 78452; 80053; 80061; 83735; 83874; 84484; 85025; 85379; 85610; 85730; 93005 ×2; 93017; 93041; 93306; 99284; A9502; G0378; 36415; 90686

== ENCOUNTER 2020-01-06 08:29 | Emergency (ER) | payer OTHER ==
[~2020-01-06] VITALS: Ht 172.7 cm; Wt 92.5 kg
[~2020-01-06 08:29] MED LIST changes: +ACET-2267 PO; +CALC500T7 PO; +FEXO180T84 PO; +IBUP200C11 PO; +ST.300TA3 PO
[2020-01-06] MEDS ORDERED: ASPIRIN 81 MG CHEW (CHILDREN'S ASA) PO ONE (09:00)
[2020-01-06] MEDS ORDERED: KETOROLAC 30 MG/ML VIAL IVP ONE (09:00)
[2020-01-06 09:08] LABS: BASOPHILS # (AUTO) 0.1 10^3/uL (0.0-0.1); BASOPHILS % (AUTO) 1 % (0-10); EOSINOPHILS # (AUTO) 0.1 10^3/uL (0.0-0.3); EOSINOPHILS % (AUTO) 2 % (0-10); HEMATOCRIT 39 % (35-52); HEMOGLOBIN 13.1 g/dL (11.5-16.0); LYMPHOCYTES # (AUTO) 2.1 10^3/uL (1.0-4.0); LYMPHOCYTES % (AUTO) 27 % (12-44); MEAN CORPUSCULAR HEMOGLOBIN 31 pg (25-34); MEAN CORPUSCULAR HGB CONC 33 g/dL (32-36); MEAN CORPUSCULAR VOLUME 92 fL (80-99); MEAN PLATELET VOLUME 9.9 fL (9.0-12.2); MONOCYTES # (AUTO) 0.6 10^3/uL (0.0-1.0); MONOCYTES % (AUTO) 8 % (0-12); NEUTROPHILS # (AUTO) 4.9 10^3/uL (1.8-7.8); NEUTROPHILS % (AUTO) 63 % (42-75); PLATELET COUNT 384 10^3/uL (130-400); WHITE BLOOD COUNT 7.8 10^3/uL (4.3-11.0)
--- NOTE | 2020-01-06 09:15 | ED Chest Pain ---
General Chief Complaint: Chest Pain Stated Complaint: SOA / COUGH Nursing Triage Note: PT TO RM 10 BY WHEELCHAIR WITH COMPLAINT OF CP THAT STARTED AROUND 0730 THIS MORNING. STATES PAIN WAS LEFT SIDED AND RADIATED TO SHOULDER BLADE. PT IS ALSO COMPLAINING OF SOA AND DIZZINESS. PAIN IS WORSE ON INSPIRATION. Nursing Sepsis Screen: No Definite Risk Source: patient, old records Exam Limitations: no limitations History of Present Illness Date Seen by Provider: Jan 06, 2020 Time Seen by Provider: 08:40 Initial Comments This 54-year-old woman presents to the emergency room with complaints of pain in the left chest above the breast and just to the left of the sternum starting about an hour prior to arrival. She had a similar episode last weekend. She was admitted for observation the first week of this month for similar symptoms. Cardiopulmonary work-up was unremarkable which included stress test, serial troponin measurements, and a D-dimer. She had one coughing fit this morning but otherwise denies any cough. She has had some shortness of breath and palpitations associated with her pain. Pain increases with movement, deep breathing and activity. She denies any known exposures to COVID-19 or other associated symptoms such as headache, loss of taste or smell, nausea, diarrhea, fever, etc. She has not taken any medications this morning. She has also been having some lightheadedness and dizziness recently that does not appear to be correlated with the chest pain. She has a pending MRI of the head and carotid ultrasound ordered as an outpatient. Pain seems to radiate through to her shoulder blade and is reproducible with palpation. Pain is rated as 8/10. Allergies and Home Medications Allergies Coded Allergies: hydrocodone (Verified Allergy, Mild, Nausea, 12/26/19) Penicillins (Verified Allergy, Unknown, 07/15/19) Home Medications Acetaminophen 500 Mg Tablet, 500 MG PO Q6H PRN for PAIN-MILD (1-4), (Reported) Calcium Carbonate 200 Mg Tab.chew, 400 MG PO PRN PRN for HEARTBURN, (Reported) TAKES 2 (200MG) TABLETS Fexofenadine HCl 180 Mg Tablet, 180 MG PO DAILY, (Reported) Ibuprofen 200 Mg Capsule, 400 MG PO Q6H PRN for PAIN-MILD (1-4), (Reported) TAKES 2 (200MG) CAPSULES Meg's Wort 300 Mg Tablet, 300 MG PO DAILY, (Reported) Patient Home Medication List Home Medication List Reviewed: Yes Review of Systems Review of Systems Constitutional: no symptoms reported EENTM: No Symptoms Reported Respiratory: See HPI Cardiovascular: See HPI Gastrointestinal: No Symptoms Reported Genitourinary: No Symptoms Reported Musculoskeletal: see HPI Skin: no symptoms reported Psychiatric/Neurological: No Symptoms Reported Endocrine: No Symptoms Reported Hematologic/Lymphatic: No Symptoms Reported Past Blkhcmq-Hkrujn-Odwcdi Hx Past Med/Social Hx: Reviewed Nursing Past Med/Soc Hx Patient Social History Alcohol Use: Regular Use Number of Drinks Today: GG Alcohol Beverage of Choice: Beer, Whiskey Recreational Drug Use: No Smoking Status: Never a Smoker Recent Foreign Travel: No Contact w/Someone Who Travel: No Recent Infectious Disease Expo: No Recent Hopitalizations: No Immunizations Up To Date Tetanus Booster (TDap): Unknown PED Vaccines UTD: Yes Seasonal Allergies Seasonal Allergies: Yes Past Medical History Surgeries: Yes (BI LAT KNEES, skin cancer excision) Lumpectomy, Orthopedic Respiratory: No Cardiac: No Neurological: No Genitourinary: No Gastrointestinal: No Musculoskeletal: No Endocrine: No HEENT: No Cancer: Yes Skin, Breast Did You Recieve Any Treatments: Yes What Type of Treatment Did You: Surgical Intervention Psychosocial: No Integumentary: No Family Medical History Alzheimer's disease 19 MOTHER Bicuspid heart valve 19 FATHER Colon cancer 19 FATHER Dementia 19 MOTHER Diabetes mellitus 19 FATHER Hypercholesterolemia 19 FATHER 19 MOTHER Hypertension 19 FATHER 19 MOTHER Physical Exam Vital Signs Vital Signs - First Documented 01/06/20 08:38 Temp 35.8 Pulse 76 Resp 12 B/P (MAP) 136/92 (107) Pulse Ox 99 O2 Delivery Room Air Capillary Refill : Less Than 3 Seconds Height, Weight, BMI Height: '" Weight: lbs. oz. kg; 31.00 BMI Method: General Appearance: No Apparent Distress, WD/WN HEENT: PERRL/EOMI, Normal ENT Inspection Neck: Normal Inspection Respiratory: Lungs Clear, Normal Breath Sounds, No Accessory Muscle Use, No Respiratory Distress, Other (Left upper chest tender to palpation) Cardiovascular: Regular Rate, Rhythm, No Edema, No Murmur, Normal Peripheral Pulses Gastrointestinal: Normal Bowel Sounds, Non Tender, Soft Extremity: Normal Inspection, Non Tender, No Calf Tenderness, Other (Negative Kristen) Neurologic/Psychiatric: Alert, Oriented x3, No Motor/Sensory Deficits, Normal Mood/Affect, fruit stuffer II-XII Norm as Tested Skin: Normal Color, Warm/Dry Progress/Results/Core Measures Results/Orders Lab Results Laboratory Tests Test 01/06/20 08:57 01/06/20 11:19 Range/Units White Blood Count 7.8 4.3-11.0 10^3/uL Red Blood Count 4.26 3.80-5.11 10^6/uL Hemoglobin 13.1 11.5-16.0 g/dL Hematocrit 39 35-52 % Mean Corpuscular Volume 92 80-99 fL Mean Corpuscular Hemoglobin 31 25-34 pg Mean Corpuscular Hemoglobin Concent 33 32-36 g/dL Red Cell Distribution Width 12.7 10.0-14.5 % Platelet Count 384 130-400 10^3/uL Mean Platelet Volume 9.9 9.0-12.2 fL Immature Granulocyte % (Auto) 0 % Neutrophils (%) (Auto) 63 42-75 % Lymphocytes (%) (Auto) 27 12-44 % Monocytes (%) (Auto) 8 0-12 % Eosinophils (%) (Auto) 2 0-10 % Basophils (%) (Auto) 1 0-10 % Neutrophils # (Auto) 4.9 1.8-7.8 10^3/uL Lymphocytes # (Auto) 2.1 1.0-4.0 10^3/uL Monocytes # (Auto) 0.6 0.0-1.0 10^3/uL Eosinophils # (Auto) 0.1 0.0-0.3 10^3/uL Basophils # (Auto) 0.1 0.0-0.1 10^3/uL Immature Granulocyte # (Auto) 0.0 0.0-0.1 10^3/uL Prothrombin Time 13.6 12.2-14.7 SEC INR Comment 1.0 0.8-1.4 Activated Partial Thromboplast Time 27 24-35 SEC Sodium Level 141 135-145 MMOL/L Potassium Level 4.8 3.6-5.0 MMOL/L Chloride Level 105 98-107 MMOL/L Carbon Dioxide Level 25 21-32 MMOL/L Anion Gap 11 5-14 MMOL/L Blood Urea Nitrogen 22 H 7-18 MG/DL Creatinine 0.87 0.60-1.30 MG/DL Estimat Glomerular Filtration Rate > 60 BUN/Creatinine Ratio 25 Glucose Level 111 H 70-105 MG/DL Calcium Level 9.5 8.5-10.1 MG/DL Corrected Calcium 9.3 8.5-10.1 MG/DL Magnesium Level 2.0 1.6-2.4 MG/DL Total Bilirubin 0.5 0.1-1.0 MG/DL Aspartate Amino Transf (AST/SGOT) 23 5-34 U/L Alanine Aminotransferase (ALT/SGPT) 33 0-55 U/L Alkaline Phosphatase 116 40-136 U/L Lactate Dehydrogenase 205 125-220 U/L Myoglobin 31.6 10.0-92.0 NG/ML Troponin I < 0.028 < 0.028 <0.028 NG/ML C-Reactive Protein High Sensitivity 0.51 H 0.00-0.50 MG/DL Total Protein 7.1 6.4-8.2 GM/DL Albumin 4.2 3.2-4.5 GM/DL My Orders Orders - SETH BAJWA MD Cbc With Automated Diff (01/06/20 08:54) Magnesium (01/06/20 08:54) Chest 1 View, Ap/Pa Only (01/06/20 08:54) Ekg Tracing (01/06/20 08:54) Comprehensive Metabolic Panel (01/06/20 08:54) Myoglobin Serum (01/06/20 08:54) Protime With Inr (01/06/20 08:54) Partial Thromboplastin Time (01/06/20 08:54) O2 (01/06/20 08:54) Monitor-Rhythm Ecg Trace Only (01/06/20 08:54) Ed Iv/Invasive Line Start (01/06/20 08:54) Aspirin Chewable Tablet (Baby Aspirin Ch (01/06/20 09:00) Ketorolac Injection (Toradol Injection) (01/06/20 09:00) Hs C Reactive Protein (01/06/20 08:57) LDH (01/06/20 08:57) Troponin I (01/06/20 08:57) Troponin I (01/06/20 11:00) Medications Given in ED Current Medications Medications Dose Ordered Sig/Aggie Route Start Time Stop Time Status Last Admin Dose Admin Aspirin 324 mg ONCE ONCE PO 01/06/20 09:00 01/06/20 09:01 DC 01/06/20 09:00 324 MG Ketorolac Tromethamine 30 mg ONCE ONCE IVP 01/06/20 09:00 01/06/20 09:01 DC 01/06/20 09:01 30 MG Vital Signs/I&O 01/06/20 01/06/20 08:38 12:24 Temp 35.8 35.8 Pulse 76 74 Resp 12 16 B/P (MAP) 136/92 (107) 126/89 (107) Pulse Ox 99 98 O2 Delivery Room Air Room Air Blood Pressure Mean: 107 Progress Progress Note #1: Time: 09:15 Progress Note Physical exam is unremarkable. Labs are pending. EKG is unchanged from prior. Aspirin and Toradol have been ordered. Progress Note #2: Progress Note Toradol resulted in reduction of pain. Repeat troponin was negative. I suspect patient has costochondritis. See discharge instructions. Initial ECG Impression Date: Jan 06, 2020 Initial ECG Impression Time: 08:51 Initial ECG Rate: 75 Initial ECG Rhythm: Normal Sinus Initial ECG Intervals: Normal Initial ECG Impression: Normal Comment Normal sinus rhythm with no ST elevation or depression. No abnormal intervals or axis deviation. Compared with prior. No acute changes. Diagnostic Imaging Diagonstic Imaging: Xray Plain Films/CT/US/NM/MRI: chest Comments Chest x-ray viewed by me and report reviewed. See report below: NAME: AAKASH SANDOVAL MED REC#: [id number] PT STATUS: REG ER : 1965 PHYSICIAN: SETH BAJWA MD ADMIT DATE: 01/06/20/ER Draft Date of Exam:01/06/20 CHEST 1 VIEW, AP/PA ONLY INDICATION: Chest pain COMPARISON: 12/26/2019 FINDINGS: Single frontal view of the chest demonstrates normal heart size and pulmonary vascularity. The lungs are well aerated and clear. No large pleural effusion or pneumothorax is seen. The visualized osseous structures show no acute abnormalities. IMPRESSION: 1. No acute cardiopulmonary process. Dictated on workstation # [id number] Dict: 01/06/2030 Trans: 01/06/2031 [facility] [id number] Interpreted by: SARAH MARK MD Departure Impression Primary Impression: Atypical chest pain Disposition: 01 HOME, SELF-CARE Condition: Improved Departure-Patient Inst. Decision time for Depature: 12:07 Referrals: CAROL ANN CANTU MD (PCP/Family) Primary Care Physician Patient Instructions: Costochondritis (DC), Chest Pain (DC) Add. Discharge Instructions: Follow through with the outpatient studies ordered by Dr. Cantu. Follow-up with Dr. 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 Take ibuprofen up to 600 mg every 6 hours as needed as primary pain management. Alternatively you may use naproxen (Aleve) up to 500 mg twice a day. Add Tylenol (acetaminophen) up to 1000 mg every 6 hours as needed for pain not controlled by ibuprofen or Aleve. Return to care if you have worsening symptoms despite following these instructions. All discharge instructions reviewed with patient and/or family. Voiced understanding. Copy Copies To 1: CAROL ANN CANTU MD, JOSHUA T MD Jan 06, 2020 09:14
[2020-01-06 09:17] LABS: ALBUMIN 4.2 GM/DL (3.2-4.5); CHLORIDE 105 MMOL/L (98-107); POTASSIUM 4.8 MMOL/L (3.6-5.0); SODIUM 141 MMOL/L (135-145)
[2020-01-06 09:18] LABS: CALCIUM 9.5 MG/DL (8.5-10.1)
[2020-01-06 09:19] LABS: GLUCOSE 111 MG/DL (70-105); TOTAL PROTEIN 7.1 GM/DL (6.4-8.2)
[2020-01-06 09:20] LABS: CARBON DIOXIDE 25 MMOL/L (21-32)
[2020-01-06 09:21] LABS: BILIRUBIN,TOTAL 0.5 MG/DL (0.1-1.0)
[2020-01-06 09:23] LABS: ALKALINE PHOSPHATASE 116 U/L (40-136); CREATININE SERUM 0.87 MG/DL (0.60-1.30); GFR ESTIMATED > 60
[2020-01-06 09:24] LABS: BUN/CREATININE RATIO 25
[2020-01-06 09:26] LABS: ALANINE AMINOTRANSFERASE 33 U/L (0-55)
--- NOTE | 2020-01-06 09:32 | Diagnostic Imaging Report ---
INDICATION: Chest pain COMPARISON: 12/26/2019 FINDINGS: Single frontal view of the chest demonstrates normal heart size and pulmonary vascularity. The lungs are well aerated and clear. No large pleural effusion or pneumothorax is seen. The visualized osseous structures show no acute abnormalities. IMPRESSION: 1. No acute cardiopulmonary process. Dictated by: Dictated on workstation # [id number]
[2020-01-06 11:01] LABS: PROTHROMBIN TIME PATIENT 13.6 SEC (12.2-14.7)
[2020-01-06 12:24] VITALS: BP 126/89
== END 2020-01-06 12:25 | disposition home or self-care (01) ==
LOC: EDUNIT# 08:29 → ER 08:30
DX: R07.89 Other chest pain (principal); Z80.0 Family history of malignant neoplasm of digestive organs; Z82.49 Family history of ischemic heart disease and other diseases of the circulatory system; Z83.3 Family history of diabetes mellitus; Z85.3 Personal history of malignant neoplasm of breast; Z85.828 Personal history of other malignant neoplasm of skin; Z88.5 Allergy status to narcotic agent; Z88.0 Allergy status to penicillin
CPT/HCPCS: 36415; 71045; 80053; 83615; 83735; 83874; 84484; 85025; 85610; 85730; 86141; 93041